=== PATIENT | female | born 1955 | race Caucasian/White ===

== ENCOUNTER → 2017-02-04 | Outpatient (CLI) | payer BC | LOC: BICMAMMO 15:41 | PROVIDERS: ATTEND Family Medicine | DX: Z12.31 Encounter for screening mammogram for malignant neoplasm of breast (principal) | CPT/HCPCS: 77063; 77067; G0202 ==

== ENCOUNTER 2017-02-05 12:20 | Day surgery (SDC) | payer BC ==
[2017-02-04 10:02] VITALS: BMI 58.3
[2017-02-05] MEDS ORDERED: Lidocaine 1% PF 5 ML VIAL ONE (16:26)
[2017-02-05] MEDS ORDERED: Propofol 200 MG/20 ML VIAL ONE (16:26)
--- NOTE | 2017-02-05 19:42 | OP ---
DATE OF PROCEDURE: 02/05/2017 TITLE OF PROCEDURE: Colonoscopy. PREPROCEDURE DIAGNOSIS: Average risk colon cancer screening. POSTPROCEDURE DIAGNOSES: 1. Exam to cecum; good bowel preparation. 2. Small internal hemorrhoids. 3. Otherwise normal colonoscopy. No polyps seen. PROCEDURE IN DETAIL: Written informed consent was obtained. The patient was brought to the endoscop y suite. Total intravenous anesthesia was provided by Dr. Nava and associates. The patient was placed in the left lateral decubitus position. A digital rectal exam was performed that was normal. A Pentax video colonoscope was inserted through the anal canal and advanced under direct visualizat ion to the cecum. Position in the cecum was verified by clear identification of the appendiceal orif ice and the ileocecal valve. The quality of the bowel preparation was good. Each colon segment was examined carefully as the colonoscope was slowly withdrawn from the cecum. Vascular pattern and haus tral folds appeared normal. No polyp, diverticulum or vascular ectasia was identified. In the rectu m, a retroflexed view demonstrated small internal hemorrhoids that were not actively bleeding. The c olon was decompressed as the colonoscope was removed from the patient. She was transferred to the da y stay surgery area for post-procedure monitoring. There were no immediate complications. RECOMMENDATIONS: 1. High-fiber low fat diet. 2. Sitz baths t.i.d. p.r.n. hemorrhoids. 3. Resume previous diet. 4. Resume Effient today. 5. Repeat colonoscopy in 10 years. 6. Follow up with gastrointestinal as needed.
== END 2017-02-05 15:08 | disposition home or self-care (01) ==
LOC: SDC 12:20
PROVIDERS: ATTEND Internal Medicine Gastroenterology
PROC: 0DJD8ZZ Inspection of Lower Intestinal Tract, Via Natural or Artificial Opening Endoscopic (ICD-10-PCS; principal; 2017-02-05)
DX: Z12.11 Encounter for screening for malignant neoplasm of colon (principal); K64.8 Other hemorrhoids; E11.9 Type 2 diabetes mellitus without complications; K21.9 Gastro-esophageal reflux disease without esophagitis; I10 Essential (primary) hypertension; E78.5 Hyperlipidemia, unspecified; G47.33 Obstructive sleep apnea (adult) (pediatric); I48.91 Unspecified atrial fibrillation; F41.9 Anxiety disorder, unspecified; F32.9 Major depressive disorder, single episode, unspecified; E03.9 Hypothyroidism, unspecified; Z87.891 Personal history of nicotine dependence; Z88.0 Allergy status to penicillin; Z79.01 Long term (current) use of anticoagulants; Z79.84 Long term (current) use of oral hypoglycemic drugs; Z79.899 Other long term (current) drug therapy; Z90.49 Acquired absence of other specified parts of digestive tract; Z99.89 Dependence on other enabling machines and devices
CPT/HCPCS: J2001; J2704

== ENCOUNTER 2017-02-10 14:10 | Outpatient (CLI) | payer BC ==
--- NOTE | 2017-02-10 16:02 | ULT ---
RIGHT LOWER EXTREMITY VENOUS DUPLEX ULTRASOUND INCLUDING COLOR AND SPECTRAL DOPPLER IMAGING 02/10/17 HISTORY: 62-year-old female with right leg pain. Exam performed from groin to ankle including visualized great er saphenous, common femoral, superficial femoral, profunda femoral, popliteal, trifurcation, and pos terior tibial vein regions. Phasic flow at all levels with normal compressibility and normal augmenta tion. No intraluminal thrombus. IMPRESSION: No evidence for deep venous thrombosis. POS: [facility]
== END 2017-02-10 14:11 | disposition home or self-care (01) ==
LOC: ULT 14:10
PROVIDERS: ATTEND Family Medicine
DX: I82.401 Acute embolism and thrombosis of unspecified deep veins of right lower extremity (principal)

== ENCOUNTER 2017-02-26 07:38 | Outpatient (CLI) | payer BC ==
--- NOTE | 2017-02-26 11:07 | MRI ---
MRI OF THE LUMBAR SPINE WITHOUT CONTRAST: Indication: Low back pain with referral of pain down the right leg since 02-03-17. Comparison: None. FINDINGS: Five lumbar type vertebral bodies are assumed for the purposes of this exam due to the lack of radiog raphic comparisons. Visualized aspects of the retroperitoneum paravertebral soft tissues are unremarkable appearing. Conus seen to terminate at approximately T12-L1. At L5-S1, there is no appreciabe central canal or neural foraminal narrowing. At the L4-5 level, there is advanced facet joint degenerative change, left greater than right, with l igamentum flavum hypertrophy and a broad based bulge producing mild central canal narrowing. Broad ba sed bulge does encroach upon the left neural foramina without definite impingement. At L3-4, there is a broad based bulge with facet hypertrophy and ligamentum flavum hypertrophy produc ing mild central canal narrowing and mild bilateral neural foraminal narrowing. At L2-3, there is a mild broad based bulge with facet joint degenerative change. At L1-2, there is no appreciably central canal or neural foraminal narrowing. At T12-L1, there is mild facet joint degenerative change and a mild broad based bulge without appreci able central canal or neural foraminal narrowing. IMPRESSION: Mild multilevel spondylosis of the lumbar spine, most pronounced at L2-3 through L4-5. POS: [facility]
== END 2017-02-26 07:39 | disposition home or self-care (01) ==
LOC: MRI 07:38 → TBSIIMAG 07:39
PROVIDERS: ATTEND Family Medicine
DX: M54.5 Low back pain (principal); M47.896 Other spondylosis, lumbar region
CPT/HCPCS: 72148

== ENCOUNTER 2018-02-05 09:25 | Outpatient (CLI) | payer OTHER | END 2018-02-05 09:26 | disposition home or self-care (01) | LOC: BICMAMMO 09:25 | PROVIDERS: ATTEND Family Medicine | DX: Z12.31 Encounter for screening mammogram for malignant neoplasm of breast (principal); Z80.3 Family history of malignant neoplasm of breast | CPT/HCPCS: 77063; 77067 ==

== ENCOUNTER 2018-04-01 09:19 | Day surgery (SDC) | payer OTHER ==
[2018-03-31 11:57] VITALS: BMI 55.0
[2018-04-01] MEDS ORDERED: PROPOFOL 200 MG/20 ML VIAL ONE (16:03)
--- NOTE | 2018-04-01 17:01 | OP ---
DATE OF PROCEDURE: 04/01/2018 TITLE OF PROCEDURE: Esophagogastroduodenoscopy with biopsy. PREPROCEDURE DIAGNOSES: 1. Iron deficiency anemia. 2. History of normal colonoscopy in January 2017. POSTPROCEDURE DIAGNOSES: 1. Exam to second portion of duodenum. 2. Small hiatal hernia. 3. Grade A esophagitis, not actively bleeding, biopsied. 4. Normal stomach. 5. Normal duodenum, biopsied. 6. No evidence of ulcer, mass, or arteriovenous malformation. DESCRIPTION OF PROCEDURE: Written informed consent was obtained. The patient was brought to the endoscopy suite. Total intravenous anesthesia was provided by Dr. Dex Molina. The patient was placed in the left lateral decubitus position. A bite block was inserted into the mouth. A Pentax video diagnostic gastroscope was introduced into the oral cavity, and the esophagus was carefully intubated. The gastroscope was advanced under direct visualization to the second portion of the duodenum. Endoscopic findings revealed a grossly normal appearing esophagus except at the GE junction. At this level, a 1 cm sliding hiatal hernia was encountered along with mucosal changes consistent with a grade A distal esophagitis at 37 cm. Biopsies were obtained for histology. There was no evidence of active bleeding from the esophagitis or esophageal ulcer. The stomach was entered and carefully examined. This included a retroflex view of the cardia and fundus. No ulcer or mass was identified. The duodenum from the bulb to the second portion was then inspected and appeared grossly normal. No vascular ectasia or ulcer was seen. Random biopsies were obtained in the proximal duodenum to evaluate for any histologic changes of celiac disease. The stomach was then decompressed as the endoscope was removed from the patient. She was transferred to the Day Stay surgery area for postprocedure monitoring. There were no immediate complications. RECOMMENDATIONS: 1. Await biopsy results. 2. Ask the patient to call me in one week for biopsy results. 3. Resume usual diet and previous medications. 4. We will arrange video capsule endoscopy of the small bowel to complete evaluation of the GI tract. 5. Follow up with me in the office after the video capsule endoscopy is completed. Job ID: [id number]
== END 2018-04-01 14:40 | disposition home or self-care (01) ==
LOC: SDC 09:19
PROVIDERS: ATTEND Internal Medicine Gastroenterology
PROC: 0DB98ZX Excision of Duodenum, Via Natural or Artificial Opening Endoscopic, Diagnostic (ICD-10-PCS; principal; 2018-04-01)
PROC: 0DB38ZX Excision of Lower Esophagus, Via Natural or Artificial Opening Endoscopic, Diagnostic (ICD-10-PCS; principal; 2018-04-01)
DX: D50.9 Iron deficiency anemia, unspecified (principal); K29.80 Duodenitis without bleeding; K20.9 Esophagitis, unspecified; K44.9 Diaphragmatic hernia without obstruction or gangrene; I48.91 Unspecified atrial fibrillation; F32.9 Major depressive disorder, single episode, unspecified; E11.9 Type 2 diabetes mellitus without complications; K21.9 Gastro-esophageal reflux disease without esophagitis; E78.00 Pure hypercholesterolemia, unspecified; E07.9 Disorder of thyroid, unspecified; I10 Essential (primary) hypertension; G47.30 Sleep apnea, unspecified; E66.9 Obesity, unspecified; Z68.43 Body mass index [BMI] 50.0-59.9, adult; Z87.891 Personal history of nicotine dependence; Z79.01 Long term (current) use of anticoagulants; Z79.84 Long term (current) use of oral hypoglycemic drugs; Z79.899 Other long term (current) drug therapy; Z88.0 Allergy status to penicillin
CPT/HCPCS: 88305; 88312; 88313; J2704

== ENCOUNTER 2019-02-08 11:59 | Outpatient (CLI) | payer OTHER ==
--- NOTE | 2019-02-08 13:06 | MMO ---
Bilateral MAMMO Bilat Screen [facility]. CLINICAL HISTORY: Patient is 64 years old and is seen for screening. The patient has the following family history of breast cancer: maternal aunt, malignant (generic). The patient has no personal history of cancer. VIEWS: The views performed were: bilateral craniocaudal with tomosynthesis and bilateral mediolateral oblique with tomosynthesis. FILMS COMPARED: The present examination has been compared to prior imaging studies performed at [facility] on 01/30/2015, 02/01/2016, 02/04/2017 and 02/05/2018. This study has been interpreted with the assistance of computer-aided detection. MAMMOGRAM FINDINGS: The breasts are almost entirely fat. There are no suspicious masses, suspicious calcifications, or new areas of architectural distortion. IMPRESSION: THERE IS NO MAMMOGRAPHIC EVIDENCE OF MALIGNANCY. A ROUTINE FOLLOW-UP MAMMOGRAM IN 1 YEAR IS RECOMMENDED. THE RESULTS OF THIS EXAM WERE SENT TO THE PATIENT. ACR BI-RADS Category 1 - Negative MAMMOGRAPHY NOTE: 1. A negative mammogram report should not delay a biopsy if a dominant of clinically suspicious mass is present. 2. Approximately 10% to 15% of breast cancers are not detected by mammography. 3. Adenosis and dense breasts may obscure an underlying neoplasm. Reported by: RENATO DOUGHERTY MD Electonically Signed: [id number]
== END 2019-02-08 12:00 | disposition home or self-care (01) ==
LOC: BICMAMMO 11:59
PROVIDERS: ATTEND Family Medicine
DX: Z12.31 Encounter for screening mammogram for malignant neoplasm of breast (principal); Z80.3 Family history of malignant neoplasm of breast
CPT/HCPCS: 77063; 77067

== ENCOUNTER 2019-04-07 13:46 | Outpatient (CLI) | payer OTHER ==
--- NOTE | 2019-04-07 14:04 | RAD ---
XR Chest Pa Lat STANDARD HISTORY: Acute bronchitis. Cough COMPARISON: 04/05/2012 FINDINGS: The heart size is borderline.. The lungs are well expanded without focal areas of consolida tion, nika pulmonary edema, pneumothorax or pleural effusions. IMPRESSION: No radiographic evidence of acute cardiopulmonary process.
== END 2019-04-07 13:47 | disposition home or self-care (01) ==
LOC: BICRAD 13:46
PROVIDERS: ATTEND Family Medicine
DX: J20.9 Acute bronchitis, unspecified (principal)
CPT/HCPCS: 71046

== ENCOUNTER 2020-02-10 11:10 | Outpatient (CLI) | payer OTHER ==
--- NOTE | 2020-02-10 14:34 | MMO ---
Bilateral MAMMO Bilat Screen [facility]. CLINICAL HISTORY: Patient is 65 years old and is seen for screening. The patient has the following family history of breast cancer: maternal aunt, malignant (generic). The patient has no personal history of cancer. VIEWS: The views performed were: bilateral craniocaudal and bilateral mediolateral oblique with tomosynthesis. FILMS COMPARED: The present examination has been compared to prior imaging studies performed at [facility] on 02/01/2016, 02/04/2017, 02/05/2018 and 02/08/2019. This study has been interpreted with the assistance of computer-aided detection. MAMMOGRAM FINDINGS: The breasts are almost entirely fat. There are no suspicious masses, suspicious calcifications, or new areas of architectural distortion. IMPRESSION: THERE IS NO MAMMOGRAPHIC EVIDENCE OF MALIGNANCY. A ROUTINE FOLLOW-UP MAMMOGRAM IN 1 YEAR IS RECOMMENDED. THE RESULTS OF THIS EXAM WERE SENT TO THE PATIENT. ACR BI-RADS Category 1 - Negative MAMMOGRAPHY NOTE: 1. A negative mammogram report should not delay a biopsy if a dominant of clinically suspicious mass is present. 2. Approximately 10% to 15% of breast cancers are not detected by mammography. 3. Adenosis and dense breasts may obscure an underlying neoplasm. Reported by: ANGELA OSORIO MD Electonically Signed: [id number]
== END 2020-02-10 11:11 | disposition home or self-care (01) ==
LOC: BICMAMMO 11:10
PROVIDERS: ATTEND Family Medicine
DX: Z12.31 Encounter for screening mammogram for malignant neoplasm of breast (principal); Z80.3 Family history of malignant neoplasm of breast
CPT/HCPCS: 77063; 77067

== ENCOUNTER 2020-10-12 09:32 | Outpatient (CLI) | payer BC | END 2020-10-12 09:33 | disposition home or self-care (01) | LOC: BICRAD 09:32 | PROVIDERS: ATTEND Family Medicine | DX: S49.90XA Unspecified injury of shoulder and upper arm, unspecified arm, initial encounter (principal) ==

== ENCOUNTER 2021-01-28 09:48 | Outpatient (CLI) | payer MEDICARE, OTHER | END 2021-01-28 09:49 | disposition home or self-care (01) | LOC: BICRAD 09:48 | PROVIDERS: ATTEND Family Medicine | DX: J20.9 Acute bronchitis, unspecified (principal) | CPT/HCPCS: 71046 ==

== ENCOUNTER 2021-02-15 08:35 | Outpatient (CLI) | payer MEDICARE | END 2021-02-15 08:36 | disposition home or self-care (01) | LOC: BICMAMMO 08:35 | PROVIDERS: ATTEND Family Medicine | DX: Z12.31 Encounter for screening mammogram for malignant neoplasm of breast (principal); Z80.3 Family history of malignant neoplasm of breast | CPT/HCPCS: 77063; 77067 ==

== ENCOUNTER 2021-03-28 09:25 | Outpatient (CLI) | payer OTHER | END 2021-03-28 09:26 | disposition home or self-care (01) | LOC: DTY/OP 09:25 | PROVIDERS: ATTEND Surgery | DX: E66.01 Morbid (severe) obesity due to excess calories (principal) | CPT/HCPCS: 97802 ==

== ENCOUNTER 2021-05-17 11:52 | Outpatient (CLI) | payer MEDICARE, OTHER ==
[2021-05-17 13:17] LABS: #Basophils 0.1 10x3/uL (0.0-0.2); #Eosinphils 0.1 10x3/uL (0.0-0.5); #Monocytes 0.8 10x3/uL (0.0-1.1); #Neutrophils 6.3 10x3/uL (1.5-8.4); %Basophils 0.6 % (0.0-2.0); %Eosinophils 1.3 % (0.0-6.0); %Lymphocytes 22.8 % (18.0-47.0); %Monocytes 8.7 % (0.0-10.0); %Neutrophils 66.4 % (40.0-75.0); Hemoglobin 12.3 g/dL (12.0-15.5); Mean Corpuscular Hemoglobin 28.7 pg (27.0-33.0); Mean Corpuscular Volume 89.7 fl (81.6-98.3); Mean Platelet Volume 9.5 fl (7.4-10.4); Platelet Count 262 10x3/uL (150-450); RBC Distribution Width 14.5 % (11.5-14.5); Red Blood Cell (RBC) Count 4.28 10x6/uL (3.90-5.03); White Blood Cell (WBC) Count 9.6 10x3/uL (3.5-10.5)
[2021-05-17 13:45] LABS: ALT (SGPT) 19 U/L (8-55); AST (SGOT) 21 U/L (5-34); Albumin 4.3 g/dL (3.4-4.8); Alkaline Phosphatase 104 U/L (40-110); Anion Gap 17 mmol/L (10-20); BUN (Urea Nitrogen) 37 mg/dL (9.8-20.1); Bilirubin, Total 0.3 mg/dL (0.2-1.2); Calc. Creatinine Clearance 0 mL/min (70-130); Carbon Dioxide 23 mmol/L (23-31); Chloride 106 mmol/L (98-107); Globulin 3.2 g/dL (2.4-3.5); Glucose 113 mg/dL (80-115); Potassium 4.4 mmol/L (3.5-5.1); Protein, Total 7.5 g/dL (5.8-8.1); Sodium 142 mmol/L (136-145)
[2021-05-17 19:18] LABS: Hemoglobin A1c 5.7 % (4.0-6.0)
[2021-05-17 23:48] LABS: SARS-CoV-2 PCR by NAA Not Detected (NotDetected)
== END 2021-05-17 11:53 | disposition home or self-care (01) ==
LOC: LABBT 11:52
PROVIDERS: ATTEND Surgery
DX: Z01.818 Encounter for other preprocedural examination (principal); I10 Essential (primary) hypertension; E78.5 Hyperlipidemia, unspecified; Z20.822 Contact with and (suspected) exposure to COVID-19
CPT/HCPCS: 71046; 80053; 83036; 85025; U0003; U0005

== ENCOUNTER 2022-03-05 14:00 | Outpatient (CLI) | payer MEDICARE | END 2022-03-05 14:01 | disposition home or self-care (01) | LOC: BICMAMMO 14:00 | PROVIDERS: ATTEND Family Medicine | DX: Z12.31 Encounter for screening mammogram for malignant neoplasm of breast (principal); Z80.3 Family history of malignant neoplasm of breast | CPT/HCPCS: 77063; 77067 ==

== ENCOUNTER 2023-03-20 13:44 | Outpatient (CLI) | payer MEDICARE | END 2023-03-20 13:45 | disposition home or self-care (01) | LOC: BICMAMMO 13:44 | PROVIDERS: ATTEND Family Medicine | DX: Z12.31 Encounter for screening mammogram for malignant neoplasm of breast (principal); Z80.3 Family history of malignant neoplasm of breast | CPT/HCPCS: 77063; 77067 ==

== ENCOUNTER 2023-04-28 05:55 | Day surgery (SDC) | payer MEDICARE ==
[2023-04-21 08:10] VITALS: BMI 36.3
[2023-04-28] MEDS ORDERED: PROPOFOL 20 ML ONE (06:19)
[2023-04-28] MEDS ORDERED: fentaNYL PF 100 MCG/2 ML SYRINGE ONE (06:19)
[2023-04-28] MEDS ORDERED: Lidocaine 2% PF 5 ML VIAL ONE (06:19)
[2023-04-28] MEDS ORDERED: Bupivacaine PF 0.5% 30 ML VIAL ONE (06:23)
[2023-04-28] MEDS ORDERED: Bacitracin Zinc Ointment 30 gm TUBE ONE (06:23)
[2023-04-28] MEDS ORDERED: LevoFLOXacin D5W 500 mg (100 mL) BAG ONE (06:56)
[2023-04-28] MEDS ORDERED: Clindamycin/D5W 900 mg/50 ml Premix Bag ONE (07:00)
[2023-04-28] MEDS ORDERED: ePHEDrine Sulfate 50 MG/10 ML VIAL ONE (07:17)
[2023-04-28] MEDS ORDERED: Atropine Sulfate 0.4 mg/1 ml Vial ONE (07:38)
[2023-04-28] MEDS ORDERED: fentaNYL 50 mcg/mL 1 mL Vial ONE (09:38)
[2023-04-28] MEDS ORDERED: Ketorolac Tromethamine 30 MG (1 mL) VIAL ONE (09:41)
== END 2023-04-28 11:04 | disposition home or self-care (01) ==
LOC: SDC 05:55
PROVIDERS: ATTEND Orthopaedic Surgery Hand Surgery
PROC: 0RGW04Z Fusion of Right Finger Phalangeal Joint with Internal Fixation Device, Open Approach (ICD-10-PCS; principal; 2023-04-28)
DX: M19.041 Primary osteoarthritis, right hand (principal); L72.8 Other follicular cysts of the skin and subcutaneous tissue; I10 Essential (primary) hypertension; E78.00 Pure hypercholesterolemia, unspecified; F41.9 Anxiety disorder, unspecified; Z90.49 Acquired absence of other specified parts of digestive tract; Z79.899 Other long term (current) drug therapy; Z88.0 Allergy status to penicillin
CPT/HCPCS: 36416; A6223; J0461; J0665; J1885; J1956; J2001; J2704; J3010; J3490